=== PATIENT | male | born 1950 | race Caucasian/White ===

== ENCOUNTER 2017-03-12 11:38 | Observation (INO) | payer MEDICARE ==
[2017-03-12 11:57] VITALS: TEMP 97.8
--- NOTE | 2017-03-12 12:12 | ED PDOC ---
Arrival/HPI - General Chief Complaint: Alcohol Ingestion Time Seen by Provider: 03/12/17 11:39 Historian: Patient - History of Present Illness Narrative History of Present Illness (Text): 03/12/17 11:52 Sal Liu is a 67 year old male who presents to the emergency department complaining of ETOH abuse today. According to ER nurse, patient was drinking with friends when he could not stand up by himself. Patient endorses that he drank vodka today. Patient denies any fall, trauma, or any other complaints at this time. Time/Duration: 4-6 hours Symptom Onset: Gradual Symptom Course: Unchanged Severity Level: Mild Activities at Onset: Light Context: Home Past Medical History - Provider Review Nursing Documentation Reviewed: Yes - Psychiatric Hx Substance Use: No (denies) Family/Social History - Physician Review Nursing Documentation Reviewed: Yes Family/Social History: No Known Family HX Smoking Status: Unknown If Ever Smoked Hx Alcohol Use: Yes Frequency of alcohol use: Daily Hx Substance Use: No (denies) Allergies/Home Meds Allergies/Adverse Reactions: Allergies No Known Allergies Allergy (Verified 03/12/17 11:47) Home Medications: Home Meds Medication Instructions Recorded Confirmed No Known Home Med 03/12/17 03/12/17 Review of Systems - Physician Review All systems were reviewed & negative as marked: Yes - Review of Systems Constitutional: Other (Intoxicated) Eyes: absent: Vision Changes ENT: absent: Hearing Changes Respiratory: absent: SOB Cardiovascular: absent: Chest Pain Gastrointestinal: absent: Abdominal Pain, Anorexia Genitourinary Male: absent: Dysuria Musculoskeletal: absent: Arthralgias Skin: absent: Rash Neurological: absent: Headache Endocrine: absent: Diaphoresis Hemo/Lymphatic: absent: Adenopathy Psychiatric: absent: Depression Physical Exam Vital Signs Reviewed: Yes Vital Signs Temp Pulse Resp BP Pulse Ox 03/12/17 16:50 85 16 146/77 100 03/12/17 11:56 97.8 F 79 15 136/76 98 Temperature: Afebrile Blood Pressure: Normal Pulse: Regular Respiratory Rate: Normal Appearance: Positive for: Other (Intoxicated) Pain Distress: None Finger Stick Blood Glucose: 89 - Systems Exam Head: Present: Atraumatic, Normocephalic Pupils: Present: PERRL Extroacular Muscles: Present: EOMI Conjunctiva: Present: Normal Mouth: Present: Moist Mucous Membranes Neck: Present: Normal Range of Motion Respiratory/Chest: Present: Clear to Auscultation, Good Air Exchange. No: Respiratory Distress, Accessory Muscle Use Cardiovascular: Present: Regular Rate and Rhythm, Normal S1, S2. No: Murmurs Abdomen: Present: Normal Bowel Sounds. No: Tenderness, Distention, Peritoneal Signs Back: Present: Normal Inspection Upper Extremity: Present: Normal Inspection. No: Cyanosis, Edema Lower Extremity: Present: Normal Inspection. No: Edema Neurological: Present: GCS=15, CN II-XII Intact, Speech Normal Skin: Present: Warm, Dry, Normal Color. No: Rashes Psychiatric: Present: Alert, Oriented x 3, Normal Insight, Normal Concentration Medical Decision Making - Lab Interpretations Lab Results: Lab Results 03/12/17 11:57: POC Glucose (mg/dL) 87 I have reviewed the lab results: Yes ED OBSERVATION Date of observation admission: 03/12/17 Time of observation admission: 11:52 - Observation admission statement Patient is being placed in observation because:: 03/12/17 11:52 Impression: 67 year old male brought in by EMS complaining of alcoholic intoxication today. - Goals of Observation Goals of observation are:: Plan: -- EKG -- Reassess and disposition - Progress Note Progress Note: EKG: Ordered, reviewed, and independently interpreted the EKG. Rate : 80 BPM Rhythm : NSR Interpretation : No ST-segment elevations or depressions, no T-wave inversions, normal intervals. Comparison : No previous EKG for comparison. 03/12/17 12:38 Patient reassessed and is in no acute distress 03/12/17 14:59 On reevaluation, patient is sleeping and is in no acute distress 03/12/17 16:18 pt awake, unsteady gait.. will continue to observe 03/12/17 19:56 The patient feels better and is in no acute distress. I have discussed the results and plan with the patient, who expresses understanding. Patient given the opportunity to ask question, all questions were answered and there is agreement with the plan to discharge the patient. Patient is stable for discharge. Patient was instructed to follow up with physician/clinic in 1-2 days or return if symptoms persist/worsen or new concerning symptoms arise. - Scribe Statement The provider has reviewed the documentation as recorded by the Jose Thomas Provider Scribe Attestation: All medical record entries made by the Scribe were at my direction and personally dictated by me. I have reviewed the chart and agree that the record accurately reflects my personal performance of the history, physical exam, medical decision making, and the department course for this patient. I have also personally directed, reviewed, and agree with the discharge instructions and disposition. Disposition/Present on Arrival - Present on Arrival Any Indicators Present on Arrival: No History of DVT/PE: No History of Uncontrolled Diabetes: No Urinary Catheter: No History of Decub. Ulcer: No History Surgical Site Infection Following: None - Disposition Have Diagnosis and Disposition been Completed?: Yes Diagnosis: Alcohol abuse Disposition: HOME/ ROUTINE Disposition Time: 16:33 Patient Problems: Current Active Problems Problem Status Onset Alcohol abuse Acute Condition: STABLE
[2017-03-13 03:01] VITALS: BP 135/72; PULSE 75; RESP 18; O2SAT 97
--- NOTE | 2017-03-13 10:28 | CARD ---
APPROVED REPORT EKG Measurement Heart [id number] 164P28 [id number] <Conclusion> Normal sinus rhythm Normal ECG
== END 2017-03-12 16:12 | disposition home or self-care (01) ==
LOC: ED 11:38 → EROBSV 12:04
PROVIDERS: ADMIT Student in an Organized Health Care Education/Training Program; ATTEND Student in an Organized Health Care Education/Training Program
DX: F10.10 Alcohol abuse, uncomplicated (principal)
CPT/HCPCS: 82948; 93005; 99283; G0378

== ENCOUNTER 2018-12-24 21:48 | Observation (INO) | payer MEDICARE, OTHER ==
--- NOTE | 2018-12-24 22:18 | ED PDOC ---
Arrival/HPI - General Chief Complaint: Medical Clearance Time Seen by Provider: 12/24/18 21:49 Historian: Patient - History of Present Illness Narrative History of Present Illness (Text): 12/24/18 22:15 Sal Liu is a 68 year old male former smoker, whose past medical history includes hypertension, who presents to the ED complaining of chest pain. Patient states he began experiencing exertional left-sided chest pain while walking today with associated dizziness. Patient denies any fever, chills, shortness of breath, nausea, vomiting, diarrhea, urinary symptoms, back pain, neck pain, headache, or any other complaints. Time/Duration: Other (tonight) Symptom Onset: Gradual Symptom Course: Unchanged Activities at Onset: Light Context: Street Past Medical History - Provider Review Nursing Documentation Reviewed: Yes - Infectious Disease Hx of Infectious Diseases: None - Tetanus Immunization Tetanus Immunization: Up to Date (per patient) - Cardiac Hx Hypertension: Yes - Pulmonary Hx Asthma: Yes - Neurological Hx Neurological Disorder: No - HEENT Hx HEENT Disorder: No - Renal Hx Renal Disorder: No - Endocrine/Metabolic Hx Endocrine Disorders: No - Hematological/Oncological Hx Blood Disorders: No - Integumentary Hx Dermatological Disorder: No - Musculoskeletal/Rheumatological Hx Falls: No - Gastrointestinal Hx Pancreatitis: Yes (alcoholic) - Genitourinary/Gynecological Hx Genitourinary Disorders: No - Psychiatric Hx Psychophysiologic Disorder: No Hx Substance Use: No - Anesthesia Hx Anesthesia: No Family/Social History - Physician Review Nursing Documentation Reviewed: Yes Family/Social History: Unknown Family HX Smoking Status: Former Smoker Hx Alcohol Use: Yes Hx Substance Use: No Substance used: Marijuana (last used yesterday) Allergies/Home Meds Allergies/Adverse Reactions: Allergies pollen extracts Allergy (Verified 12/15/18 21:27) ITCHING Review of Systems - Physician Review All systems were reviewed & negative as marked: Yes - Review of Systems Constitutional: Normal. absent: Fevers Eyes: Normal ENT: Normal Respiratory: Normal. absent: SOB, Cough Cardiovascular: Chest Pain Gastrointestinal: Normal. absent: Abdominal Pain, Diarrhea, Nausea, Vomiting Genitourinary Male: Normal. absent: Dysuria, Frequency, Hematuria, Urinary Output Changes Musculoskeletal: Normal. absent: Back Pain, Neck Pain Skin: Normal Neurological: Dizziness. absent: Headache Endocrine: Normal Hemo/Lymphatic: Normal Psychiatric: Normal Physical Exam Vital Signs Reviewed: Yes Temperature: Afebrile Blood Pressure: Normal Pulse: Regular Respiratory Rate: Normal Appearance: Positive for: Well-Appearing, Non-Toxic, Comfortable Pain Distress: None Mental Status: Positive for: Alert and Oriented X 3 - Systems Exam Head: Present: Atraumatic, Normocephalic Pupils: Present: PERRL Extroacular Muscles: Present: EOMI Conjunctiva: Present: Normal Mouth: Present: Moist Mucous Membranes Neck: Present: Normal Range of Motion Respiratory/Chest: Present: Clear to Auscultation, Good Air Exchange. No: Respiratory Distress, Accessory Muscle Use Cardiovascular: Present: Regular Rate and Rhythm, Normal S1, S2. No: Murmurs Abdomen: No: Tenderness, Distention, Peritoneal Signs Back: Present: Normal Inspection Upper Extremity: Present: Normal Inspection. No: Cyanosis, Edema Lower Extremity: Present: Normal Inspection. No: Edema Neurological: Present: GCS=15, CN II-XII Intact, Speech Normal Skin: Present: Warm, Dry, Normal Color. No: Rashes Psychiatric: Present: Alert, Oriented x 3, Normal Insight, Normal Concentration Medical Decision Making ED Course and Treatment: 12/24/18 22:16 Impression: 68 year old male complaining of exertional left-sided chest pain and dizziness. Plan: -- EKG -- Chest X-ray -- Labs, cardiac enzymes -- Reassess and disposition Prior Visits: Notes and results from previous visits were reviewed. Progress Notes: Reviewed EKG, NSR at 76 bpm. Occasional PVC. Non-specific ST/T wave changes. 12/24/18 23:56 Chest X-ray reviewed, shows no acute processes. 12/25/18 01:[address] Christine, who is aware and agrees with plan. Accepts pt in to her service. Pt will go to Telemetry observation for chest pain. - Lab Interpretations I have reviewed the lab results: Yes - RAD Interpretation School Bus Aide: ED Physician - EKG Interpretation Interpreted by ED Physician: Yes Type: 12 lead EKG - Scribe Statement The provider has reviewed the documentation as recorded by the Scribe Edyta Chino Provider Scribe Attestation: All medical record entries made by the Scribe were at my direction and pe rsonally dictated by me. I have reviewed the chart and agree that the record accurately reflects my personal performance of the history, physical exam, medical decision making, and the department course for this patient. I have also personally directed, reviewed, and agree with the discharge instructions and disposition. Disposition/Present on Arrival - Present on Arrival Any Indicators Present on Arrival: No History of DVT/PE: No History of Uncontrolled Diabetes: No Urinary Catheter: No History of Decub. Ulcer: No History Surgical Site Infection Following: None - Disposition Have Diagnosis and Disposition been Completed?: Yes Diagnosis: Chest pain Disposition: HOSPITALIZED Disposition Time: 01:13 Patient Problems: Current Active Problems Problem Status Onset Chest pain Acute Condition: STABLE
[2018-12-24 22:38] LABS: HEMOGLOBIN 12.5 g/dL (14.0-18.0); MEAN CELL VOLUME 92.7 fl (80.0-105.0); MEAN CORPUSCULAR HEMOGLOBIN 30.5 pg (25.0-35.0); MEAN CORPUSCULAR HGB CONC 32.9 g/dl (31.0-37.0); MEAN PLATELET VOLUME 10.5 fl (7.0-11.0); RBC 4.1 10^6/uL (3.5-6.1); RED CELL DISTRIBUTION WIDTH 20.2 % (11.5-14.5); WHITE BLOOD COUNT 5.1 10^3/uL (4.5-11.0)
[2018-12-24 22:47] LABS: INR 1.41; PARTIAL THROMBOPLASTIN TIME 30.8 Seconds (26.9-38.3); PROTHROMBIN TIME 15.6 SECONDS (9.4-12.5)
[2018-12-24 22:56] LABS: CALCIUM 8.2 mg/dL (8.4-10.5)
[2018-12-24 22:57] LABS: ALB/GLOB RATIO 0.6 (1.1-1.8); ALBUMIN 3.3 g/dL (3.0-4.8)
[2018-12-24 23:15] LABS: CK MB% 1.5 % (2.5-3.0); CK-MB 6.5 ng/mL (0.0-3.6)
[2018-12-24 23:16] LABS: TROPONIN I 0.02 ng/mL
[2018-12-25 03:12] VITALS: BMI 24.3
--- NOTE | 2018-12-25 10:06 | RAD ---
Date of service: 12/24/2018 HISTORY: chest pain COMPARISON: No prior. TECHNIQUE: 1 view obtained. FINDINGS: LUNGS: No active pulmonary disease. PLEURA: No significant pleural effusion identified, no pneumothorax apparent. CARDIOVASCULAR: No aortic atherosclerotic calcification present. Normal cardiac size. No pulmonary vascular congestion. OSSEOUS STRUCTURES: No significant abnormalities. VISUALIZED UPPER ABDOMEN: Normal. OTHER FINDINGS: None. IMPRESSION: No active disease.
[2018-12-25] MEDS: Cefpodoxime (Vantin) 200 mg Tab PO SCH ×2 (12:05→22:01)
[2018-12-25] MEDS: Magnesium Oxide 400 mg Tab UD PO SCH (12:06)
[2018-12-25] MEDS: Multivitamin With Minerals Tab PO SCH (12:06)
--- NOTE | 2018-12-25 13:23 | CARD ---
APPROVED REPORT Date of service: 12/24/2018 EKG Measurement Heart [id number] [place] 160P34 [id number] <Conclusion> Sinus rhythm with occasional premature ventricularl complexes Otherwise normal ECG
--- NOTE | 2018-12-25 20:52 | HP ---
DATE OF EXAM: 12/25/2018 HISTORY OF PRESENT ILLNESS: The patient is 68-year-old black male, seen and examined. He states yesterday he was talking to somebody, having some joke. He was laughing. After sometime, he started to have left-sided chest pain, stabbing in nature with no significant radiation or diaphoresis. No history of fever or chills. No cough or congestion. No weakness. No dizziness. No fever. No cough. No hemoptysis. No hematemesis. He denies any abdominal pain. PAST MEDICAL HISTORY: He has past medical history significant for: 1. Cirrhosis liver. 2. History of alcohol abuse. 3. History of chronic kidney disease. 4. History of cholelithiasis. 5. Recently he states he stepped on a nail, and he had excision and some procedure done on his foot. He does not know what it actually was. 6. History of multiple therapeutic paracentesis. 7. Peptic ulcer disease. SOCIAL HISTORY: He drinks liquor almost every day; although, he was told he has cirrhosis liver, and he says that he has a plan for stop drinking soon. History of drug abuse. He lives with his family. ALLERGY: HE IS NOT ALLERGIC TO ANY MEDICATION. MEDICATIONS: At home, he is on Lasix 20 mg daily, folic acid 1 mg daily, propranolol 10 mg twice a day, spironolactone 50 mg daily, Protonix 40 daily, and multivitamin and magnesium oxide. PHYSICAL EXAMINATION: GENERAL: He looks comfortable. No chest pain. No shortness of breath. He does complain of pain in his left breast area. He seems to be having gynecomastia, probably secondary to cirrhosis liver. VITAL SIGNS: He is afebrile, pulse 83, respirations 19, and blood pressure 125/72. LUNGS: Bilateral fair airflow. No rhonchi or crackle. HEART: S1 and S2 audible. ABDOMEN: Soft and nontender. No rebound. No guarding. NEUROLOGIC: The patient is awake and alert; able to communicate. LABORATORY DATA: WBCs 5.1, hemoglobin 12.5, hematocrit 38, and platelet 97. PT 15.6 and INR 1.15. Chemistry; sodium 140, potassium 5.0, chloride 109, CO2 of 20, BUN 26, creatinine 2.2, and blood sugar of 91. Total bili 1.4, AST 138, ALT 39, alk phos 257, LDH is 1231, and CPK 427. Two sets of troponin is negative. ASSESSMENT: 1. Chest pain, seems to be noncardiac. 2. History of cirrhosis liver. 3. Gynecomastia. 4. Chronic kidney disease. 5. History of excessive alcohol use. 6. Cholelithiasis. 7. Status post multiple paracentesis because of cirrhosis liver. PLAN: We will follow up his troponin. We will start him on his usual medication. Analgesic as needed. He has infection close to the base of second toe because of recent intervention. I will hold off Bactrim that he was given, and we will rather give him cephalosporin. We will follow up troponin; order for echocardiogram. Awaiting Cardiology input. We will monitor for next 24 hours and discharge plan if the patient remains stable in a.m. Shantell Christine MD
--- NOTE | 2018-12-25 23:13 | CON ---
DATE: 12/25/2018 HISTORY OF PRESENT ILLNESS: The patient is a 68-year-old male who presents with focal atypical chest pain which is throbbing. The patient's past medical history includes ascites secondary to cirrhosis secondary to heavy alcohol intake. The patient continues to drink at home. The patient has no previous cardiac history. He was seen at [facility] recently where he had a paracentesis He suffers from hypertension and likely COPD from his years of smoking. REVIEW OF SYSTEMS: Free of cardiac symptomatology. PHYSICAL EXAMINATION: VITAL SIGNS: Blood pressure is 125/72. The heart rate is in the 80s. NECK: Negative JVD. LUNGS: Without rales. HEART: S1, S2. EXTREMITIES: Without edema. LABORATORY DATA: Includes an EKG which is within normal limits. Troponin so far negative. BUN and creatinine 26 and 2.2. The liver function tests are elevated. The hemoglobin is 12.5. IMPRESSION 1. Atypical chest pain. 2. No evidence for acute coronary syndrome. 3. Cirrhosis. 4. History of ascites 5. Hypertension. 6. Likely chronic obstructive pulmonary disease. 7. Alcohol addiction. PLAN: Given these findings, the patient is agreeable for AA program. We will rule out a myocardial infarction. If negative, the patient can be discharged in the morning. We will arrange for an outpatient stress test. Santiago Nelson MD
[2018-12-26 07:03] VITALS: O2SAT 95
[2018-12-26 07:03] LABS: ALB/GLOB RATIO 0.6 (1.1-1.8); ALBUMIN 2.7 g/dL (3.0-4.8); CALCIUM 8.7 mg/dL (8.4-10.5)
[2018-12-26] MEDS: Multivitamin With Minerals Tab PO SCH (09:29)
[2018-12-26] MEDS: Magnesium Oxide 400 mg Tab UD PO SCH (09:29)
[2018-12-26] MEDS: Cefpodoxime (Vantin) 200 mg Tab PO SCH (09:31)
--- NOTE | 2018-12-26 12:26 | PN ---
DATE: 12/26/2018 SUBJECTIVE: The patient was asymptomatic. PHYSICAL EXAMINATION: VITAL SIGNS: Blood pressure 153/83, heart rate is in the 60s. NECK: Negative JVD. LUNGS: Without rales. HEART: S1, S2. EXTREMITIES: Without edema. LABORATORY DATA: Troponins are negative x3. LFTs remain mildly elevated. IMPRESSION: 1. Alcoholism. 2. Probable alcoholic liver disease. 3. Atypical chest pain which is now resolved. 4. No evidence for acute coronary syndrome. PLAN: Given these findings, I have discussed with the patient about his need to stop his alcohol issues. He is agreeable for Alcoholics Anonymous. We will schedule an outpatient cardiac testing with the patient for his atypical chest pain. Santiago Nelson MD
[2018-12-26 14:08] VITALS: BP 145/87; PULSE 67; RESP 18; TEMP 98
--- NOTE | 2018-12-26 19:15 | CARD ---
APPROVED REPORT Date of service: 12/26/2018 EXAM: Two-dimensional and M-mode echocardiogram with Doppler and color Doppler. INDICATION Dizziness and Vertigo 2D DIMENSIONS Left Atrium (2D)3.9 (1.6-4.0cm)IVSd1.0 (0.7-1.1cm) LVDd4.3 (3.9-5.9cm)PWd1.0 (0.7-1.1cm) LVDs2.8 (2.5-4.0cm)FS (%) 34.9 % LVEF (%)64.3 (>50%) M-Mode DIMENSIONS Aortic Root3.90 (2.2-3.7cm)Aortic Cusp Exc.1.50 (1.5-2.0cm) Aortic Valve AoV Peak Vgsttgok892.0cm/[place] Peak GR.4mmHg Mitral Valve MV E Dtgvdkml43.9cm/sMV A Kqmgoudc73.9cm/sE/A ratio0.5 TDI Lateral E' Peak V9.85cm/sMedial E' Peak V6.04cm/sE/Lateral E'4.5 E/Medial E'7.3 Pulmonary Valve PV Peak Zhmlfsob24.1cm/sPV Peak Grad.2mmHg Tricuspid Valve TR Peak Bahajdnh876jr/sRAP [id number] Peak Gr.17mmHg [id number] LEFT VENTRICLE The left ventricle is normal size. There is normal left ventricular wall thickness. The left ventricular function is normal.EF-60-65% There is normal LV segmental wall motion. Transmitral Doppler flow pattern is Grade III-reversible restrictive diastolic dysfunction. No left ventricle thrombus noted on this study. There is no ventricular septal defect visualized. There is no left ventricular aneurysm. There is no mass noted in the left ventricle. RIGHT VENTRICLE The right ventricle is normal size. There is normal right ventricular wall thickness. The right ventricular systolic function is normal. ATRIA The left atrium size is normal. The right atrium size is normal. The atrial septum is aneurysmal. AORTIC VALVE The aortic valve is thickened but opens well. The aortic valve is mildly sclerotic. There is trace aortic regurgitation. There is no aortic valvular stenosis. There is no aortic valvular vegetation. MITRAL VALVE The mitral valve is thickened but opens well. Mitral regurgitation is trace. There is no mitral valve stenosis. There is no evidence of mitral valve prolapse. TRICUSPID VALVE The tricuspid valve leaflets are thickened , but open well. There is trace tricuspid regurgitation.RVSP-27 mmof Hg. There is no tricuspid valve stenosis. There is no tricuspid valve prolapse or vegetation. PULMONIC VALVE The pulmonary valve is normal in structure. There is no pulmonic valvular regurgitation. There is no pulmonic valvular stenosis. GREAT VESSELS The aortic root is normal in size. The ascending aorta is normal in size. The pulmonary artery is normal. The IVC is normal in size and collapses >50% with inspiration. PERICARDIAL EFFUSION There is no pleural effusion. There is no pericardial effusion. <Conclusion> Normal chamber Sizes. EF-60-65% Mitral regurgitation is trace. There is trace tricuspid regurgitation.RVSP-27 mmof Hg. The atrial septum is aneurysmal. The IVC is normal in size and collapses >50% with inspiration. There is no pericardial effusion. No Vegetation or thrombus noted.
--- NOTE | 2018-12-27 02:47 | DS ---
HISTORY OF PRESENT ILLNESS: The patient is a 68-year-old who came in with chest pain. There was no associated . No nausea. No vomiting. No diarrhea. The patient was observed overnight, doing well, and no chest pain noted. PHYSICAL EXAMINATION: VITAL SIGNS: The patient is afebrile, pulse 70, respirations 20, and blood pressure 153/83. LUNGS: Bilateral fair airflow. No rhonchi or crackle. HEART: S1 and S2 audible. ABDOMEN: Soft and nontender. No rebound. No guarding. NEUROLOGIC: The patient is awake, alert, and able to communicate. EXTREMITIES: Bilateral legs, no edema. SKIN: The patient seem to be jaundiced. LABORATORY DATA: Chemistry; sodium 137, potassium 5, chloride 105, CO2 of 25, BUN 21, creatinine 1.7, blood sugar of 94, and total bili 1.4. AST 146, ALT 53, and alk phos 244. ASSESSMENT: 1. Chest pain, seems to be noncardiac. Echocardiogram is pending. 2. History of alcohol abuse. 3. History of cirrhosis liver. 4. Status post multiple paracentesis. The patient does admit that he still drinks, he is advised to be referred to Alcoholics Anonymous meeting. PLAN: The patient is being discharged home today. He will resume his medication including Aldactone, aspirin, folic acid, propranolol, magnesium oxide, multivitamin, he is on Bactrim at home for his foot injury that he is advised to finish and follow up with his PMD. Shantell Christine MD
== END 2018-12-26 15:45 | disposition home or self-care (01) ==
LOC: ED 21:48 → ERH 12-25 01:13 → 2RNO 12-25 01:53
PROVIDERS: ADMIT Internal Medicine; ATTEND Internal Medicine
DX: R07.89 Other chest pain (principal); F10.20 Alcohol dependence, uncomplicated; I12.9 Hypertensive chronic kidney disease with stage 1 through stage 4 chronic kidney disease, or unspecified chronic kidney disease; N18.9 Chronic kidney disease, unspecified; K70.9 Alcoholic liver disease, unspecified; J44.9 Chronic obstructive pulmonary disease, unspecified; K74.60 Unspecified cirrhosis of liver; K80.20 Calculus of gallbladder without cholecystitis without obstruction; N62 Hypertrophy of breast; Z87.11 Personal history of peptic ulcer disease; Z87.891 Personal history of nicotine dependence
CPT/HCPCS: 36415; 71045; 80053; 82550; 82553; 83615; 84484; 85027; 85610; 85730; 93005; 93306; 96374; 99282; G0378; J0694; J1940

== ENCOUNTER 2018-12-27 01:59 | Inpatient (IN) | payer MEDICARE, OTHER ==
--- NOTE | 2018-12-27 02:14 | ED PDOC ---
Arrival/HPI <Jayesh Agosto - Last Filed: 12/27/18 02:48> - General Historian: Patient - History of Present Illness Narrative History of Present Illness (Text): 12/27/18 02:32 CC: non-specific abdominal pain HPI: 68 yo male w/ PMH of alcoholic liver cirrhosis, HTN, and pancreatitis comes to ED for evaluation of abdominal pain. Patient states that he had 1 shot of Fireball whiskey today. Patient also admits he [place] [facility] [place] because of the extended wait time. Patient states the pain started today in the abdomen, non-radiating, not relived with bowel movement today. Patient states he was recently discharged from the hospital for similar complaints but has not followed up with rehab for his alcohol problem. Denies fevers, chills, chest pain, sob, n/v, constipation or diarrhea, and dysuria. 12/27/18 02:35 Time/Duration: 24 hours Symptom Onset: Sudden Symptom Course: Unchanged Quality: Aching Severity Level: 7 Activities at Onset: Rest Context: Sitting <Ja Lynn - Last Filed: 12/27/18 04:02> - General Chief Complaint: Pain, Chronic Time Seen by Provider: 12/27/18 02:10 Past Medical History - Provider Review Nursing Documentation Reviewed: Yes - Infectious Disease Hx of Infectious Diseases: None - Tetanus Immunization Tetanus Immunization: Up to Date (per patient) - Cardiac Hx Hypertension: Yes - Pulmonary Hx Asthma: Yes - Neurological Hx Neurological Disorder: No - HEENT Hx HEENT Disorder: No - Renal Hx Renal Disorder: No - Endocrine/Metabolic Hx Endocrine Disorders: No - Hematological/Oncological Hx Blood Disorders: No - Integumentary Hx Dermatological Disorder: No - Musculoskeletal/Rheumatological Hx Falls: No - Gastrointestinal Hx Pancreatitis: Yes (alcoholic) - Genitourinary/Gynecological Hx Genitourinary Disorders: No - Psychiatric Hx Psychophysiologic Disorder: No Hx Substance Use: No - Anesthesia Hx Anesthesia: No <Ja Lynn - Last Filed: 12/27/18 04:02> Family/Social History - Physician Review Nursing Documentation Reviewed: Yes Family/Social History: No Known Family HX Smoking Status: Former Smoker Hx Alcohol Use: Yes Hx Substance Use: No Substance used: Marijuana (last used yesterday) <Ja Lynn - Last Filed: 12/27/18 04:02> Allergies/Home Meds <Jayesh Agosto - Last Filed: 12/27/18 02:48> <Ja Lynn - Last Filed: 12/27/18 04:02> Allergies/Adverse Reactions: Allergies pollen extracts Allergy (Verified 12/27/18 02:02) ITCHING Review of Systems - Review of Systems Constitutional: Normal. absent: Fatigue, Weight Change, Fevers Eyes: Normal. absent: Vision Changes, Photophobia, Eye Pain ENT: Normal. absent: Hearing Changes, Tinnitus, TMJ Pain Respiratory: Normal. absent: SOB, Cough, Sputum, Wheezing Cardiovascular: Normal. absent: Chest Pain, Palpitations, Edema, Calf Pain Gastrointestinal: Abdominal Pain. absent: Stool Changes, Constipation, Diarrhea, Nausea, Vomiting, Appetite Changes Genitourinary Male: Normal. absent: Dysuria, Frequency, Hematuria Musculoskeletal: Normal. absent: Arthralgias, Back Pain, Neck Pain Skin: Normal. absent: Rash, Pruritis, Skin Lesions Neurological: Normal. absent: Headache, Dizziness, Focal Weakness Endocrine: Normal. absent: Diaphoresis, Polyuria, Polydipsia Psychiatric: Normal. absent: Anxiety, Depression <Ja Lynn - Last Filed: 12/27/18 04:02> Physical Exam Vital Signs Reviewed: Yes Temperature: Afebrile Blood Pressure: Normal Pulse: Regular Respiratory Rate: Normal Appearance: Positive for: Well-Appearing, Non-Toxic, Comfortable Pain Distress: None Mental Status: Positive for: Alert and Oriented X 3 - Systems Exam Head: Present: Atraumatic, Normocephalic Pupils: Present: PERRL. No: Sluggish Extroacular Muscles: Present: EOMI. No: Gaze Palsy Conjunctiva: Present: Normal. No: Injected Mouth: Present: Dry Neck: Present: Normal Range of Motion. No: Meningeal Signs, JVD Respiratory/Chest: Present: Clear to Auscultation, Good Air Exchange. No: Respiratory Distress, Accessory Muscle Use, Wheezes, Decreased Breath Sounds Cardiovascular: Present: Regular Rate and Rhythm, Normal S1, S2. No: Murmurs, Tachycardic Abdomen: Present: Normal Bowel Sounds. No: Tenderness, Distention, Peritoneal Signs Upper Extremity: Present: Normal Inspection. No: Cyanosis, Edema Lower Extremity: Present: Normal Inspection. No: Edema Neurological: Present: GCS=15, CN II-XII Intact, Speech Normal Skin: Present: Warm, Dry, Normal Color. No: Rashes Psychiatric: Present: Alert, Oriented x 3, Normal Insight, Normal Concentration <Ja Lynn - Last Filed: 12/27/18 04:02> Medical Decision Making ED Course and Treatment: 12/27/18 02:36 Impression 68 yo male w/ PMH of alcoholic liver cirrhosis, HTN, and pancreatitis comes to ED for evaluation of abdominal pain. Plan -CBC -CMP -U/A -Tramadol -EKG -Troponin Prior Visits All prior documentation and lab work reviewed prior to this evaluation Progress notes will reassess pain pending blood work and urine study pending troponin and EKG 12/27/18 03:58 Lab work came with elevated Cr (1 unit increase from yesterday) After further review patient had positive urine cx for VRE, was discharged before culture returned, attempts were made to contact patient but unsuccessful U/A resulted and is suggestive of infection Troponin normal Spoke with Dr. Christine who accepted patient to her service, asked for ID consult with Dr. Lamb, will be admitted to med surgical floor Re-evaluation Time: 03:57 Reassessment Condition: Re-examined, Unchanged - Lab Interpretations Lab Results: 12/27/18 02:49 12/27/18 02:49 Lab Results 12/27/18 03:10: Urine Color Yellow, Urine Appearance Cloudy, Urine pH 6.0, Ur Specific [place] 1.020, Urine Protein Negative, Urine Glucose (UA) Negative, Urine Ketones Negative, Urine Blood Trace-intact H, Urine Nitrate Negative, Urine Bilirubin Negative, Urine Urobilinogen 0.2, Ur Leukocyte Esterase Moderate H, Urine RBC 0 - 2, Urine WBC 10 - 15 H, Ur Epithelial Cells 1 - 3, Urine Bacteria Many 12/27/18 02:49: Sodium 134, Potassium 4.6, Chloride 100, Carbon Dioxide 24, Anion Gap 15, BUN 26 H, Creatinine 2.7 H, Est GFR ( Amer) 28, Est GFR (Non-Af Amer) 23, Random Glucose 99, Calcium 9.4, Total Bilirubin 2.3 H, AST 140 H, ALT 51, Alkaline Phosphatase 236 H, Troponin I 0.02 D, Total Protein 8.4 H, Albumin 3.3, Globulin 5.1, Albumin/Globulin Ratio 0.7 L 12/27/18 02:49: WBC 7.0 D, RBC 4.26, Hgb 13.1 L, Hct 39.4 L, MCV 92.5, MCH 30. 8, MCHC 33.2, RDW 19.5 H, Plt Count 97 L, MPV 10.2, Neut % (Auto) 51.6, Lymph % (Auto) 36.5 H, [place] % (Auto) 8.7 H, Eos % (Auto) 2.3, Baso % (Auto) 0.9, Lymph # (Auto) 2.6, [place] # (Auto) 0.6, Eos # (Auto) 0.2, Baso # (Auto) 0.06, Absolute Neuts (auto) 3.60 I have reviewed the lab results: Yes Interpretation: Abnormal lab values - EKG Interpretation Interpreted by ED Physician: Yes (Sinus ryhtm w. PVCs; HR of 70) Type: 12 lead EKG <Ja Lynn - Last Filed: 12/27/18 04:02> - PA / ALIGNER / Resident Statement ERMIAS has reviewed & agrees with the documentation as recorded. ERMIAS has examined the patient and agrees with the treatment plan. <Jayesh Agosto - Last Filed: 12/27/18 02:48> Disposition/Present on Arrival <Jayesh Agosto - Last Filed: 12/27/18 02:48> - Present on Arrival Any Indicators Present on Arrival: No History of DVT/PE: No History of Uncontrolled Diabetes: No Urinary Catheter: No History of Decub. Ulcer: No History Surgical Site Infection Following: None - Disposition Have Diagnosis and Disposition been Completed?: Yes Disposition Time: 04:02 Patient Plan: Admission <Ja Lynn - Last Filed: 12/27/18 04:02> - Disposition Diagnosis: ANDIE (acute kidney injury), UTI (urinary tract infection) due to Enterococcus Disposition: HOSPITALIZED Condition: FAIR Forms: [facility] ([place])
[2018-12-27 03:08] LABS: BASO # 0.06 K/mm3 (0.0-2.0); BASO % 0.9 % (0.0-3.0); EOS # 0.2 (0.0-0.7); EOS % 2.3 % (1.5-5.0); HEMOGLOBIN 13.1 g/dL (14.0-18.0); LYMPH # 2.6 (1.2-3.4); LYMPH % 36.5 % (22.0-35.0); MEAN CELL VOLUME 92.5 fl (80.0-105.0); MEAN CORPUSCULAR HEMOGLOBIN 30.8 pg (25.0-35.0); MEAN CORPUSCULAR HGB CONC 33.2 g/dl (31.0-37.0); MEAN PLATELET VOLUME 10.2 fl (7.0-11.0); MONO # 0.6 (0.1-0.6); MONO % 8.7 % (1.0-6.0); RBC 4.26 10^6/uL (3.5-6.1); RED CELL DISTRIBUTION WIDTH 19.5 % (11.5-14.5)
[2018-12-27 03:22] LABS: URINE BILIRUBIN NEGATIVE (NEGATIVE); URINE BLOOD TRACE-INTACT (NEGATIVE); URINE GLUCOSE (UA) NEGATIVE (NEGATIVE); URINE LEUKOCYTE ESTERASE MODERATE Leu/uL (NEGATIVE); URINE PROTEIN NEGATIVE mg/dL (<30 mg/dL); URINE UROBILINOGEN 0.2 E.U./dL (<1 E.U./dL)
[2018-12-27 03:25] LABS: URINE COLOR YELLOW (YELLOW)
[2018-12-27 03:26] LABS: TROPONIN I 0.02 ng/mL
[2018-12-27 03:26] LABS: URINE APPEARANCE CLOUDY (CLEAR)
[2018-12-27 03:31] LABS: ALB/GLOB RATIO 0.7 (1.1-1.8); ALBUMIN 3.3 g/dL (3.0-4.8); CALCIUM 9.4 mg/dL (8.4-10.5)
[2018-12-27 03:40] LABS: URINE RBC 0 - 2 /hpf (0-2)
[2018-12-27 03:41] LABS: URINE BACTERIA MANY /hpf
[2018-12-27] MEDS ORDERED: Linezolid 600 mg in D5W 300 ml 600 MG/300 ML BAG IVPB ONE (03:48)
[2018-12-27 07:06] VITALS: BMI 18.8
--- NOTE | 2018-12-27 08:38 | CP.PCM.CON ---
<Constantin Carter - Last Filed: 12/27/18 10:48> History of Present Illness - History of Present Illness History of Present Illness: Infectious disease consult note: 68-year-old male with past medical history of alcoholic liver cirrhosis, pancreatitis, hypertension, CKD presents to the hospital with abdominal pain. Patient states that his abdominal pain started yesterday following a shot of w hiskey. He states the pain is generalized and 7 out of 10 in severity. Denies any nausea or vomiting. Patient denies any urinary discomfort however does admit to some urgency. Patient was just recently present and discharged from the hospital for abdominal pain ruling out SBP. Patient had a urine culture that was positive for VRE. Infectious diseases consulted for urine cultures positive for VRE. 12 point ROS performed negative other than stated above PMH: As above PSH: Admits to some liver surgery however does not recall the name Allergies: Denies SH: Admits to drinking liquor every day, denies any drug or alcohol use FH: Denies Review of Systems - Review of Systems All systems: reviewed and no additional remarkable complaints except Past Patient History - Infectious Disease Hx of Infectious Diseases: None - Tetanus Immunizations Tetanus Immunization: Up to Date (per patient) - Past Medical History & Family History Past Medical History?: Yes - Past Social History Smoking Status: Former Smoker - CARDIAC Hx Cardiac Disorders: Yes Hx Hypertension: Yes Other/Comment: chest pain - PULMONARY Hx Respiratory Disorders: Yes Hx Asthma: Yes Hx Pneumonia: Yes - NEUROLOGICAL Hx Neurological Disorder: No - HEENT Hx HEENT Problems: No - RENAL Hx Chronic Kidney Disease: No Other/Comment: ANDIE - ENDOCRINE/METABOLIC Hx Endocrine Disorders: No - HEMATOLOGICAL/ONCOLOGICAL Hx Blood Disorders: Yes Hx Cirrhosis: Yes - INTEGUMENTARY Hx Dermatological Problems: No - MUSCULOSKELETAL/RHEUMATOLOGICAL Hx Arthritis: Yes Hx Falls: Yes Hx Unsteady Gait: Yes - GASTROINTESTINAL Hx Gastrointestinal Disorders: Yes Hx Pancreatitis: Yes (alcoholic) Hx Ulcer: Yes - GENITOURINARY/GYNECOLOGICAL Hx Genitourinary Disorders: No - PSYCHIATRIC Hx Psychophysiologic Disorder: Yes Hx Depression: Yes - SURGICAL HISTORY Hx Surgeries: Yes Other/Comment: liver bx - ANESTHESIA Hx Anesthesia: No Meds Allergies/Adverse Reactions: Allergies Allergy/AdvReac Type Severity Reaction Status Date / Time pollen extracts Allergy ITCHING Verified 12/27/18 02:02 - Medications Medications: Current Medications Linezolid (Zyvox 600mg/300ml D5w) 600 mg in 300 mls @ 200 mls/hr IVPB Q12 [facility]ERY; Protocol Stop: 12/27/18 23:29 Cefepime HCl (Maxipime 1gm) 1 gm in 100 mls @ 100 mls/hr IVPB Q24H [facility]; Protocol Stop: 01/04/19 14:01 Metronidazole (Flagyl) 250 mg PO Q8H [facility]ERY; Protocol Stop: 01/04/19 07:01 Physical Exam - Constitutional Appears: No Acute Distress - Head Exam Head Exam: ATRAUMATIC, NORMOCEPHALIC - Eye Exam Eye Exam: EOMI, PERRL - ENT Exam ENT Exam: Mucous Membranes Moist - Respiratory Exam Respiratory Exam: Clear to Auscultation Bilateral. absent: Rales, Wheezes - Cardiovascular Exam Cardiovascular Exam: REGULAR RHYTHM, +S1, +S2 - GI/Abdominal Exam GI & Abdominal Exam: Distended, Normal Bowel Sounds, Soft, Tenderness (mild) - Extremities Exam Extremities exam: Negative for: calf tenderness, pedal edema - Neurological Exam Neurological exam: Alert, Oriented x3 - Psychiatric Exam Psychiatric exam: Normal Mood - Skin Skin Exam: Dry, Warm Results - Vital Signs Recent Vital Signs: Last Vital Signs Temp 97.8 F 12/27/18 08:15 Pulse 69 12/27/18 08:15 Resp 20 12/27/18 08:15 BP 106/67 12/27/18 08:15 Pulse Ox 99 12/27/18 08:15 - Labs Result Diagrams: 12/27/18 02:49 12/27/18 02:49 Labs: Laboratory Results - last 24 hr 12/27/18 12/27/18 12/27/18 02:49 02:49 03:10 WBC 7.0 D RBC 4.26 Hgb 13.1 L Hct 39.4 L MCV 92.5 MCH 30.8 MCHC 33.2 RDW 19.5 H Plt Count 97 L MPV 10.2 Neut % (Auto) 51.6 Lymph % (Auto) 36.5 H [place] % (Auto) 8.7 H Eos % (Auto) 2.3 Baso % (Auto) 0.9 Lymph # (Auto) 2.6 [place] # (Auto) 0.6 Eos # (Auto) 0.2 Baso # (Auto) 0.06 Absolute Neuts (auto) 3.60 Sodium 134 Potassium 4.6 Chloride 100 Carbon Dioxide 24 Anion Gap 15 BUN 26 H Creatinine 2.7 H Est GFR ( Amer) 28 Est GFR (Non-Af Amer) 23 Random Glucose 99 Calcium 9.4 Total Bilirubin 2.3 H AST 140 H ALT 51 Alkaline Phosphatase 236 H Troponin I 0.02 D Total Protein 8.4 H Albumin 3.3 Globulin 5.1 Albumin/Globulin Ratio 0.7 L Urine Color Yellow Urine Appearance Cloudy Urine pH 6.0 Ur Specific [place] 1.020 Urine Protein Negative Urine Glucose (UA) Negative Urine Ketones Negative Urine Blood Trace-intact H Urine Nitrate Negative Urine Bilirubin Negative Urine Urobilinogen 0.2 Ur Leukocyte Esterase Moderate H Urine RBC 0 - 2 Urine WBC 10 - 15 H Ur Epithelial Cells 1 - 3 Urine Bacteria Many Assessment & Plan - Assessment and Plan (Free Text) Assessment: Abdominal pain rule out SBP Asymptomatic bacteriurea Acute on chronic kidney dx Alcoholic liver cirrhosis Hypertension History of pancreatitis Patient was given 1 dose of linezolid in the ED, we will d/c We will continue patient on Cefepime and Flagyl Follow-up septic work-up Continue to monitor for any changes. Case and plan to be reviewed and discussed with Dr. Lamb <Moshe Lamb - Last Filed: 12/27/18 18:08> Meds - Medications Medications: Current Medications Folic Acid (Folic Acid) 1 mg PO DAILY [facility] Last Admin: 12/27/18 11:09 Dose: 1 mg Furosemide (Lasix) 20 mg PO DAILY [facility] Last Admin: 12/27/18 11:09 Dose: 20 mg Cefepime HCl (Maxipime 1gm) 1 gm in 100 mls @ 100 mls/hr IVPB Q24H [facility]; Protocol Stop: 01/04/19 14:01 Last Admin: 12/27/18 15:11 Dose: 100 mls/hr Magnesium Oxide (Mag-Ox) 400 mg PO DAILY [facility] Last Admin: 12/27/18 11:07 Dose: 400 mg Metronidazole (Flagyl) 250 mg PO Q8H [facility]; Protocol Stop: 01/04/19 07:01 Last Admin: 12/27/18 15:12 Dose: 250 mg Propranolol HCl (Inderal) 10 mg PO BID [facility] Last Admin: 12/27/18 17:42 Dose: 10 mg Spironolactone (Aldactone) 50 mg PO DAILY [facility] Last Admin: 12/27/18 11:08 Dose: 50 mg Thiamine HCl (Vitamin B1 Tab) 100 mg PO DAILY [facility] Last Admin: 12/27/18 11:07 Dose: 100 mg Results - Vital Signs Recent Vital Signs: Last Vital Signs Temp 98.9 F 12/27/18 16:25 Pulse 82 12/27/18 17:42 Resp 20 12/27/18 16:25 BP 110/71 12/27/18 17:42 Pulse Ox 97 12/27/18 16:25 - Labs Result Diagrams: 12/27/18 02:49 12/27/18 02:49 Labs: Laboratory Results - last 24 hr 12/27/18 12/27/18 12/27/18 02:49 02:49 03:10 WBC 7.0 D RBC 4.26 Hgb 13.1 L Hct 39.4 L MCV 92.5 MCH 30.8 MCHC 33.2 RDW 19.5 H Plt Count 97 L MPV 10.2 Neut % (Auto) 51.6 Lymph % (Auto) 36.5 H [place] % (Auto) 8.7 H Eos % (Auto) 2.3 Baso % (Auto) 0.9 Lymph # (Auto) 2.6 [place] # (Auto) 0.6 Eos # (Auto) 0.2 Baso # (Auto) 0.06 Absolute Neuts (auto) 3.60 Sodium 134 Potassium 4.6 Chloride 100 Carbon Dioxide 24 Anion Gap 15 BUN 26 H Creatinine 2.7 H Est GFR ( Amer) 28 Est GFR (Non-Af Amer) 23 Random Glucose 99 Calcium 9.4 Total Bilirubin 2.3 H AST 140 H ALT 51 Alkaline Phosphatase 236 H Troponin I 0.02 D Total Protein 8.4 H Albumin 3.3 Globulin 5.1 Albumin/Globulin Ratio 0.7 L Lipase Urine Color Yellow Urine Appearance Cloudy Urine pH 6.0 Ur Specific [place] 1.020 Urine Protein Negative Urine Glucose (UA) Negative Urine Ketones Negative Urine Blood Trace-intact H Urine Nitrate Negative Urine Bilirubin Negative Urine Urobilinogen 0.2 Ur Leukocyte Esterase Moderate H Urine RBC 0 - 2 Urine WBC 10 - 15 H Ur Epithelial Cells 1 - 3 Urine Bacteria Many 12/27/18 09:00 WBC RBC Hgb Hct MCV MCH MCHC RDW Plt Count MPV Neut % (Auto) Lymph % (Auto) [place] % (Auto) Eos % (Auto) Baso % (Auto) Lymph # (Auto) [place] # (Auto) Eos # (Auto) Baso # (Auto) Absolute Neuts (auto) Sodium Potassium Chloride Carbon Dioxide Anion Gap BUN Creatinine Est GFR ( Amer) Est GFR (Non-Af Amer) Random Glucose Calcium Total Bilirubin AST ALT Alkaline Phosphatase Troponin I Total Protein Albumin Globulin Albumin/Globulin Ratio Lipase 300 Urine Color Urine Appearance Urine pH Ur Specific [place] Urine Protein Urine Glucose (UA) Urine Ketones Urine Blood Urine Nitrate Urine Bilirubin Urine Urobilinogen Ur Leukocyte Esterase Urine RBC Urine WBC Ur Epithelial Cells Urine Bacteria Attending/Attestation - Attestation I have personally seen and examined this patient.: Yes I have fully participated in the care of the patient.: Yes I have reviewed all pertinent clinical information: Yes
[2018-12-27] MEDS: Magnesium Oxide 400 mg Tab UD PO SCH (11:07)
--- NOTE | 2018-12-27 11:37 | CARD ---
APPROVED REPORT Date of service: 12/27/2018 EKG Measurement Heart [id number] <Conclusion> Sinus rhythm with occasional premature ventricular complexes Otherwise normal ECG
[2018-12-27] MEDS: Cefepime 1gm in NS 100ml 1 GM/100 ML BAG IVPB SCH (15:11)
--- NOTE | 2018-12-27 20:17 | HP ---
DATE OF EXAM: 12/27/2018 HISTORY OF PRESENT ILLNESS: The patient is 68 years old, he was just discharged yesterday after he was admitted for chest pain. He was there was no acute coronary ischemia. The patient does have a history of alcohol abuse. He does admit drinking 2 shots last night. He states he started with abdominal pain, suprapubic discomfort. On previous admission, he was found to have VRE urine infection, so he came back for suprapubic discomfort and evaluation of that. PAST MEDICAL HISTORY: Significant for: 1. Cirrhosis liver secondary to alcohol abuse. 2. History of hypertension. 3. Hyperlipidemia. 4. Right foot wound infection. He had multiple admissions for ascites and they were tapped multiple times; however, the patient still actively drinks. 5. History of chronic kidney disease. 6. Cholelithiasis. 7. Peptic ulcer disease. SOCIAL HISTORY: He drinks liquor almost everyday. He lives with his niece. He denies drug abuse. No history of smoking. ALLERGIES: NOT ALLERGIC TO ANY MEDICATIONS. MEDICATIONS AT HOME: He is on Lasix 20 mg daily, folic acid 1 mg daily, magnesium oxide 400 mg daily, Protonix 40 mg daily, spironolactone 50 mg daily, and propranolol 10 mg twice a day. PHYSICAL EXAMINATION: GENERAL: He is awake and alert, able to communicate, complains of some palpable discomfort. VITAL SIGNS: He is afebrile. Pulse 69, respirations 20 and blood pressure 106/69. LUNGS: Bilateral fair airflow. No rhonchi or crackles. HEART: S1 and S2, audible. ABDOMEN: Soft. Suprapubic discomfort. NEUROLOGIC: He is awake and alert, able to communicate. LABORATORY DATA: WBC 7.0, hemoglobin 13, hematocrit 39 and platelets 97. Chemistry; sodium 134, potassium 4.6, chloride 100, CO2 of 24, BUN 26, creatinine 2.7, blood sugar of 99, alk phos 237, AST 140, total bili 2.3. Urinalysis shows moderate leukocyte, 10-15 WBC's. ASSESSMENT: 1. Suprapubic discomfort, probably cystitis and urinary tract infection, growing vancomycin-resistant enterococci. 2. Alcoholic hepatitis. 3. Alcohol abuse. 4. Cirrhosis liver. 5. Cirrhotic ascites. 6. History of hypertension. 7. Electrolyte imbalance. 8. History of pancreatitis in the past. PLAN: Currently, the patient is on cefepime and Flagyl to be covered for spontaneous bacterial peritonitis and VRE UTI, we will continue that. We will monitor his electrolytes, CBC and CMP intermittently. Shantell Christine MD
[2018-12-27] MEDS ORDERED: Linezolid 600 mg in D5W 300 ml 600 MG/300 ML BAG IVPB SCH (22:00)
[2018-12-28] MEDS: Magnesium Oxide 400 mg Tab UD PO SCH (10:21)
--- NOTE | 2018-12-28 12:49 | CP.PCM.PN ---
<Constantin Carter - Last Filed: 12/28/18 15:09> Subjective - Date & Time of Evaluation Date of Evaluation: 12/28/18 Time of Evaluation: 07:50 - Subjective Subjective: ID progress note: Pt seen and examined at bedside. No acute events overnight. Pt still c/o some abd pain. No other complaints. NO fevers. Objective - Vital Signs/Intake and Output Vital Signs (last 24 hours): Temp Pulse Resp BP Pulse Ox 98.0 F 79 20 110/69 96 12/28/18 06:00 12/28/18 10:21 12/28/18 06:00 12/28/18 10:22 12/28/18 06:00 - Medications Medications: Current Medications Chlordiazepoxide (Librium) 25 mg PO Q8 PRN; Protocol PRN Reason: Agitation Folic Acid (Folic Acid) 1 mg PO DAILY [facility] Last Admin: 12/28/18 10:21 Dose: 1 mg Furosemide (Lasix) 20 mg PO DAILY [facility] Last Admin: 12/28/18 10:22 Dose: 20 mg Cefepime HCl (Maxipime 1gm) 1 gm in 100 mls @ 100 mls/hr IVPB Q24H [facility]; Protocol Stop: 01/04/19 14:01 Last Admin: 12/27/18 15:11 Dose: 100 mls/hr Magnesium Oxide (Mag-Ox) 400 mg PO DAILY [facility] Last Admin: 12/28/18 10:21 Dose: 400 mg Metronidazole (Flagyl) 250 mg PO Q8 [facility]; Protocol Stop: 01/04/19 06:01 Last Admin: 12/28/18 06:21 Dose: 250 mg Propranolol HCl (Inderal) 10 mg PO BID [facility] Last Admin: 12/28/18 10:21 Dose: 10 mg Spironolactone (Aldactone) 50 mg PO DAILY [facility] Last Admin: 12/28/18 10:21 Dose: 50 mg Thiamine HCl (Vitamin B1 Tab) 100 mg PO DAILY [facility] Last Admin: 12/28/18 10:21 Dose: 100 mg - Labs Labs: 12/27/18 02:49 12/27/18 02:49 - Constitutional Appears: No Acute Distress - Head Exam Head Exam: ATRAUMATIC, NORMOCEPHALIC - Eye Exam Eye Exam: EOMI - Respiratory Exam Respiratory Exam: Clear to Ausculation Bilateral. absent: Wheezes - Cardiovascular Exam Cardiovascular Exam: REGULAR RHYTHM, +S1, +S2 - GI/Abdominal Exam GI & Abdominal Exam: Soft, Tenderness - Extremities Exam Extremities Exam: absent: Calf Tenderness, Pedal Edema - Neurological Exam Neurological Exam: Alert, Awake - Skin Skin Exam: Dry, Warm Assessment and Plan - Assessment and Plan (Free Text) Assessment: Abdominal pain rule out SBP Asymptomatic bacteriurea Acute on chronic kidney dx Alcoholic liver cirrhosis Hypertension History of pancreatitis Linezolid x 1 we will d/c Asymptomatic bacteriurea We will continue patient on Cefepime and Flagyl day 2 Follow-up septic work-up, blood cx x 24 neg F/u paracenthesis ordered Continue to monitor for any changes. Case and plan to be reviewed and discussed with Dr. Lamb <Moshe Lamb - Last Filed: 12/28/18 21:51> Objective - Vital Signs/Intake and Output Vital Signs (last 24 hours): Temp Pulse Resp BP Pulse Ox 99 F 77 18 114/68 97 12/28/18 16:30 12/28/18 18:19 12/28/18 16:30 12/28/18 18:19 12/28/18 16:30 Intake and Output: 12/28/18 12/29/18 18:59 06:59 Intake Total 100 Balance 100 - Medications Medications: Current Medications Chlordiazepoxide (Librium) 25 mg PO Q8 PRN; Protocol PRN Reason: Agitation Folic Acid (Folic Acid) 1 mg PO DAILY [facility] Last Admin: 12/28/18 10:21 Dose: 1 mg Furosemide (Lasix) 20 mg PO DAILY [facility] Last Admin: 12/28/18 10:22 Dose: 20 mg Cefepime HCl (Maxipime 1gm) 1 gm in 100 mls @ 100 mls/hr IVPB Q24H [facility]; Protocol Stop: 01/04/19 14:01 Last Admin: 12/28/18 13:19 Dose: 100 mls/hr Magnesium Oxide (Mag-Ox) 400 mg PO DAILY [facility] Last Admin: 12/28/18 10:21 Dose: 400 mg Metronidazole (Flagyl) 250 mg PO Q8 [facility]; Protocol Stop: 01/04/19 06:01 Last Admin: 12/28/18 13:19 Dose: 250 mg Propranolol HCl (Inderal) 10 mg PO BID [facility] Last Admin: 12/28/18 18:19 Dose: 10 mg Spironolactone (Aldactone) 50 mg PO DAILY [facility] Last Admin: 12/28/18 10:21 Dose: 50 mg Thiamine HCl (Vitamin B1 Tab) 100 mg PO DAILY [facility] Last Admin: 12/28/18 10:21 Dose: 100 mg - Labs Labs: 12/27/18 02:49 12/27/18 02:49 Attending/Attestation - Attestation I have personally seen and examined this patient.: Yes I have fully participated in the care of the patient.: Yes I have reviewed all pertinent clinical information, including history, physical exam and plan: Yes
[2018-12-28] MEDS: Cefepime 1gm in NS 100ml 1 GM/100 ML BAG IVPB SCH (13:19)
--- NOTE | 2018-12-28 17:52 | US ---
PROCEDURE: Ultrasound guided paracentesis. HISTORY: Alcoholic cirrhosis with ascites. Abdominal pain. Evaluate for peritonitis. PHYSICIAN(S): Santiago Schuster MD. TECHNIQUE: The relative risks and indications for the procedure were explained to the patient and informed written consent obtained. Sonography of the abdomen was performed in a supine position. This revealed a very small amount of non loculated ascites in the right lower quadrant. There was not enough fluid for a therapeutic paracentesis. A 20 gauge needle was advanced in the right lower quadrant and 25 cc of clear gabino fluid aspirated. The appropriate labs were sent IMPRESSION: Ultrasound-guided paracentesis in the right lower quadrant. 25 cc of clear gabino fluid was aspirated. The appropriate labs were sent
[2018-12-28 18:00] LABS: BODY FLUID TYPE PERITONEAL/ASCITES
[2018-12-28 19:12] LABS: BF GROSS APPEARANCE CLOUDY (CLEAR); BODY FLUID TOTAL COUNT 100 (0-0)
--- NOTE | 2018-12-28 21:22 | PN ---
DATE: 12/28/2018 SUBJECTIVE: The patient is 68 years old, seen and examined. He states his suprapubic discomfort is better than before. Denies any nausea or vomiting. Eating and tolerating. PHYSICAL EXAMINATION VITAL SIGNS: The patient is afebrile. Pulse 64, respirations 18, blood pressure 106/70. LUNGS: Bilateral fair airflow. No rhonchi or crackle. HEART: S1 and S2 audible. ABDOMEN: Soft. Right suprapubic discomfort. NEUROLOGIC: He is awake and alert, able to communicate. LABORATORY DATA: WBC 7, hemoglobin 13, hematocrit 39, platelets 97. Chemistries; sodium 134, potassium 4.6, chloride 100, CO2 of 24, BUN 26, creatinine 2.7. Total bili 2.3, AST 140, alk phos is 236. Urine shows moderate leukocytes. Blood cultures are negative. ASSESSMENT AND PLAN: 1. Vancomycin-resistant enterococci urinary tract infection. I am no sure if this is colonization or is infection. 2. Cirrhosis of liver secondary to chronic alcohol use. 3. Cirrhotic ascites, questionable on small-volume parenteral. 4. Active alcohol abuse. PLAN: Currently, the patient is on metronidazole. He is on spironolactone, propranolol, Lasix. He is on Librium as needed. He is on magnesium oxide and cefepime. Request to Dr. Santiago Schuster for diagnostic paracentesis. Shantell Christine MD
--- NOTE | 2018-12-29 08:10 | CP.PCM.PN ---
<Constantin Carter - Last Filed: 12/29/18 13:56> Subjective - Date & Time of Evaluation Date of Evaluation: 12/29/18 Time of Evaluation: 10:00 - Subjective Subjective: Infectious dx progress note: Pt seen and examined at bedside. No acute events overnight. No abd pain. No other complaints at this time. No fevers 12 Point ROS performed and neg other than stated above Objective - Vital Signs/Intake and Output Vital Signs (last 24 hours): Temp Pulse Resp BP Pulse Ox 99 F 77 18 114/68 97 12/28/18 16:30 12/28/18 18:19 12/28/18 16:30 12/28/18 18:19 12/28/18 16:30 Intake and Output: 12/29/18 12/29/18 06:59 18:59 Intake Total 1520 Output Total 600 Balance 920 - Medications Medications: Current Medications Chlordiazepoxide (Librium) 25 mg PO Q8 PRN; Protocol PRN Reason: Agitation Folic Acid (Folic Acid) 1 mg PO DAILY [facility] Last Admin: 12/28/18 10:21 Dose: 1 mg Furosemide (Lasix) 20 mg PO DAILY [facility] Last Admin: 12/28/18 10:22 Dose: 20 mg Cefepime HCl (Maxipime 1gm) 1 gm in 100 mls @ 100 mls/hr IVPB Q24H [facility]; Protocol Stop: 01/04/19 14:01 Last Admin: 12/28/18 13:19 Dose: 100 mls/hr Magnesium Oxide (Mag-Ox) 400 mg PO DAILY [facility] Last Admin: 12/28/18 10:21 Dose: 400 mg Metronidazole (Flagyl) 250 mg PO Q8 [facility]; Protocol Stop: 01/04/19 06:01 Last Admin: 12/29/18 06:40 Dose: 250 mg Propranolol HCl (Inderal) 10 mg PO BID [facility] Last Admin: 12/28/18 18:19 Dose: 10 mg Spironolactone (Aldactone) 50 mg PO DAILY [facility] Last Admin: 12/28/18 10:21 Dose: 50 mg Thiamine HCl (Vitamin B1 Tab) 100 mg PO DAILY [facility] Last Admin: 12/28/18 10:21 Dose: 100 mg - Labs Labs: 12/27/18 02:49 12/27/18 02:49 - Constitutional Appears: No Acute Distress - Respiratory Exam Respiratory Exam: Clear to Ausculation Bilateral. absent: Rales, Wheezes - Cardiovascular Exam Cardiovascular Exam: REGULAR RHYTHM, +S1, +S2 - GI/Abdominal Exam GI & Abdominal Exam: Soft. absent: Distended, Tenderness - Extremities Exam Extremities Exam: absent: Calf Tenderness, Pedal Edema Assessment and Plan - Assessment and Plan (Free Text) Assessment: Abdominal pain rule out SBP s/p paracenthesis neg for SBP Asymptomatic bacteriurea Acute on chronic kidney dx Alcoholic liver cirrhosis Hypertension History of pancreatitis Upon d/c can go with Augmentin 875mg PO for 5 days. Linezolid x 1 we will d/c Asymptomatic bacteriurea D/c Cefepime and Flagyl completed 3 days Follow-up septic work-up, blood cx x 24 neg Continue to monitor for any changes. Case and plan to be reviewed and discussed with Dr. Lamb <Moshe Lamb - Last Filed: 12/29/18 22:06> Objective - Vital Signs/Intake and Output Vital Signs (last 24 hours): Temp Pulse Resp BP Pulse Ox 98.7 F 71 20 108/64 96 12/29/18 17:23 12/29/18 17:30 12/29/18 17:23 12/29/18 17:30 12/29/18 17:23 - Medications Medications: Current Medications Amoxicillin/Clavulanate Potassium (Augmentin 875 Mg-125 Mg Tab) 1 tab PO Q12 [facility]; Protocol Last Admin: 12/29/18 21:08 Dose: 1 tab Chlordiazepoxide (Librium) 25 mg PO Q8 PRN; Protocol PRN Reason: Agitation Folic Acid (Folic Acid) 1 mg PO DAILY [facility] Last Admin: 12/29/18 09:25 Dose: 1 mg Furosemide (Lasix) 20 mg PO DAILY [facility] Last Admin: 12/29/18 09:25 Dose: 20 mg Magnesium Oxide (Mag-Ox) 400 mg PO DAILY [facility] Last Admin: 12/29/18 09:25 Dose: 400 mg Propranolol HCl (Inderal) 10 mg PO BID [facility] Last Admin: 12/29/18 17:30 Dose: 10 mg Spironolactone (Aldactone) 50 mg PO DAILY [facility] Last Admin: 12/29/18 09:25 Dose: 50 mg Thiamine HCl (Vitamin B1 Tab) 100 mg PO DAILY [facility] Last Admin: 12/29/18 09:24 Dose: 100 mg - Labs Labs: 12/29/18 08:20 12/29/18 08:20 Attending/Attestation - Attestation I have personally seen and examined this patient.: Yes I have fully participated in the care of the patient.: Yes I have reviewed all pertinent clinical information, including history, physical exam and plan: Yes
[2018-12-29 08:30] LABS: BASO # 0.02 K/mm3 (0.0-2.0); BASO % 0.3 % (0.0-3.0); EOS # 0.2 (0.0-0.7); EOS % 2.5 % (1.5-5.0); HEMOGLOBIN 11.7 g/dL (14.0-18.0); LYMPH # 2.3 (1.2-3.4); LYMPH % 33.4 % (22.0-35.0); MEAN CELL VOLUME 94.3 fl (80.0-105.0); MEAN CORPUSCULAR HEMOGLOBIN 30.3 pg (25.0-35.0); MEAN CORPUSCULAR HGB CONC 32.1 g/dl (31.0-37.0); MEAN PLATELET VOLUME 10.5 fl (7.0-11.0); MONO # 0.5 (0.1-0.6); RBC 3.86 10^6/uL (3.5-6.1); RED CELL DISTRIBUTION WIDTH 19.1 % (11.5-14.5); WHITE BLOOD COUNT 6.7 10^3/uL (4.5-11.0)
[2018-12-29 08:32] VITALS: RESP 20
[2018-12-29 08:41] LABS: ALB/GLOB RATIO 0.6 (1.1-1.8); ALBUMIN 2.8 g/dL (3.0-4.8); CALCIUM 8.7 mg/dL (8.4-10.5)
[2018-12-29] MEDS: Magnesium Oxide 400 mg Tab UD PO SCH (09:25)
[2018-12-29] MEDS: Cefepime 1gm in NS 100ml 1 GM/100 ML BAG IVPB SCH (13:54)
[2018-12-29 17:24] VITALS: O2SAT 96
[2018-12-29] MEDS: Amoxicillin-Clav 875-125 mg Tab PO SCH (21:08)
--- NOTE | 2018-12-29 21:36 | PN ---
DATE: 12/29/2018 SUBJECTIVE: The patient is 68 years old. Seen and examined. He states since he has paracentesis and fluids taken out, he feels much better. Belly pain has significantly improved. Eating better. PHYSICAL EXAMINATION: VITAL SIGNS: He is afebrile, pulse 71, respirations 20, and blood pressure 108/64. LUNGS: Bilateral fair air flow. No rhonchi or crackles. HEART: S1 and S2 audible. ABDOMEN: Soft. Less distention. No suprapubic discomfort. NEUROLOGIC: He is awake and alert. Able to communicate. LABORATORY EXAMINATION: WBC 6.7, hemoglobin 11.7, hematocrit 36.4, and platelets of 83. Chemistry: Sodium 134, potassium 4.5, chloride 105, CO2 of 21, BUN 29, creatinine 1.8. Blood sugar of 104. AST 107. Fluid contained rbc's of 21,000; polymorphonuclear cells 7.2; and mononuclear cells 92.8%. ASSESSMENT: 1. 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 2. Ascites. 3. Vancomycin-resistant enterococcal urinary tract infection. 4. Blood cultures are negative. , no growth. 5. Active alcohol abuse. PLAN: Currently, the patient is on spironolactone. He is on Augmentin for his port wounds and empirically for SBP. Follow up culture. Discharge plan in a.. Shantell Christine MD
--- NOTE | 2018-12-30 07:49 | CP.PCM.PN ---
<Constantin Carter - Last Filed: 12/30/18 15:20> Subjective - Date & Time of Evaluation Date of Evaluation: 12/30/18 Time of Evaluation: 10:05 - Subjective Subjective: Infectious dx progress note: Pt seen and examined at bedside. No acute events overnight. States abd pain has improved. No other complaints at this time. No fevers 12 Point ROS performed and neg other than stated above Objective - Vital Signs/Intake and Output Vital Signs (last 24 hours): Temp Pulse Resp BP Pulse Ox 98.7 F 71 20 108/64 96 12/29/18 17:23 12/29/18 17:30 12/29/18 17:23 12/29/18 17:30 12/29/18 17:23 Intake and Output: 12/30/18 12/30/18 06:59 18:59 Intake Total 120 Balance 120 - Medications Medications: Current Medications Amoxicillin/Clavulanate Potassium (Augmentin 875 Mg-125 Mg Tab) 1 tab PO Q12 [facility]; Protocol Last Admin: 12/29/18 21:08 Dose: 1 tab Chlordiazepoxide (Librium) 25 mg PO Q8 PRN; Protocol PRN Reason: Agitation Folic Acid (Folic Acid) 1 mg PO DAILY [facility] Last Admin: 12/29/18 09:25 Dose: 1 mg Furosemide (Lasix) 20 mg PO DAILY [facility] Last Admin: 12/29/18 09:25 Dose: 20 mg Magnesium Oxide (Mag-Ox) 400 mg PO DAILY [facility] Last Admin: 12/29/18 09:25 Dose: 400 mg Propranolol HCl (Inderal) 10 mg PO BID [facility] Last Admin: 12/29/18 17:30 Dose: 10 mg Spironolactone (Aldactone) 50 mg PO DAILY [facility] Last Admin: 12/29/18 09:25 Dose: 50 mg Thiamine HCl (Vitamin B1 Tab) 100 mg PO DAILY [facility] Last Admin: 12/29/18 09:24 Dose: 100 mg - Labs Labs: 12/29/18 08:20 12/29/18 08:20 - Constitutional Appears: No Acute Distress - Head Exam Head Exam: ATRAUMATIC, NORMOCEPHALIC - Eye Exam Eye Exam: EOMI - Respiratory Exam Respiratory Exam: Clear to Ausculation Bilateral. absent: Rales, Wheezes - Cardiovascular Exam Cardiovascular Exam: REGULAR RHYTHM, +S1, +S2 - GI/Abdominal Exam GI & Abdominal Exam: Soft. absent: Tenderness - Extremities Exam Extremities Exam: absent: Calf Tenderness - Neurological Exam Neurological Exam: Alert, Awake - Skin Skin Exam: Dry, Warm Assessment and Plan - Assessment and Plan (Free Text) Assessment: Abdominal pain rule out SBP s/p paracenthesis neg for SBP Asymptomatic bacteriurea Acute on chronic kidney dx Alcoholic liver cirrhosis Hypertension History of pancreatitis Upon d/c can go with Augmentin 875mg PO today day 2 to complete 5 days of therapy. Linezolid x 1 we will d/c Asymptomatic bacteriurea Ascitic fluid cx - neg D/c Cefepime and Flagyl completed 3 days Follow-up septic work-up, blood cx neg Continue to monitor for any changes. Case and plan to be reviewed and discussed with Dr. Lamb <Moshe Lamb - Last Filed: 12/30/18 21:31> Objective - Vital Signs/Intake and Output Vital Signs (last 24 hours): Temp Pulse Resp BP Pulse Ox 99.2 F 66 20 107/67 96 12/30/18 08:02 12/30/18 11:11 12/30/18 08:02 12/30/18 11:12 12/30/18 08:02 - Labs Labs: 12/29/18 08:20 12/29/18 08:20 Attending/Attestation - Attestation I have personally seen and examined this patient.: Yes I have fully participated in the care of the patient.: Yes I have reviewed all pertinent clinical information, including history, physical exam and plan: Yes
[2018-12-30 08:03] VITALS: BP 107/67; PULSE 66; TEMP 99.2
[2018-12-30] MEDS: Amoxicillin-Clav 875-125 mg Tab PO SCH (11:09)
[2018-12-30] MEDS: Magnesium Oxide 400 mg Tab UD PO SCH (11:10)
--- NOTE | 2018-12-31 01:08 | DS ---
HISTORY OF PRESENT ILLNESS: The patient is 68 years old, who came in with abdominal discomfort. He was also found to have VRE in urine. He had cirrhotic ascites that was tapped. Although it did not grow anything, he was empirically started on Rocephin and Flagyl and did very well, responded to antibiotics and pain improved. Eating and tolerating. PHYSICAL EXAMINATION: GENERAL: Today, he is awake and alert, able to communicate. VITAL SIGNS: Afebrile, pulse 66, respirations 20, blood pressure 107/67. LUNGS: Bilateral fair airflow. No rhonchi or crackle. HEART: S1 and S2 audible. ABDOMEN: Soft, nontender. No rebound and no guarding. NEUROLOGIC: The patient is awake and alert, communicates. ASSESSMENT AND PLAN: 1. History of alcohol abuse. 2. Cirrhosis of liver. 3. Cirrhotic ascites. 4. Vancomycin-resistant enterococcal urinary tract infection. 5. Recent injury to the foot. PLAN: The patient is clinically stable, is being discharged home. He will resume his medication including thiamin, spironolactone, propranolol, magnesium, Lasix, folic acid. He is given prescription of Augmentin 500 mg 3 times a day for a week and for 3 days and he will follow with his PMD. Shantell Christine MD
== END 2018-12-30 14:38 | disposition home or self-care (01) | DRG 433 ==
LOC: ED 01:59 → ERH 04:02 → 3RNO 05:29
PROVIDERS: ADMIT Internal Medicine; ATTEND Internal Medicine
PROC: 0W9G3ZX Drainage of Peritoneal Cavity, Percutaneous Approach, Diagnostic (ICD-10-PCS; principal; 2018-12-28 16:00)
DX: K70.31 Alcoholic cirrhosis of liver with ascites (principal); N39.0 Urinary tract infection, site not specified; N17.9 Acute kidney failure, unspecified; K70.11 Alcoholic hepatitis with ascites; I12.9 Hypertensive chronic kidney disease with stage 1 through stage 4 chronic kidney disease, or unspecified chronic kidney disease; N18.9 Chronic kidney disease, unspecified; B95.2 Enterococcus as the cause of diseases classified elsewhere; Z16.21 Resistance to vancomycin; F10.10 Alcohol abuse, uncomplicated; E78.5 Hyperlipidemia, unspecified; Z87.11 Personal history of peptic ulcer disease; Z87.891 Personal history of nicotine dependence

== ENCOUNTER 2018-12-31 21:56 | Emergency (ER) | payer MEDICARE ==
[2018-12-31 22:03] VITALS: BMI 18.7
[2018-12-31 22:20] VITALS: TEMP 97.9; O2SAT 100
--- NOTE | 2018-12-31 23:03 | ED PDOC ---
Arrival/HPI - General Chief Complaint: Alcohol Ingestion Time Seen by Provider: 12/31/18 21:58 Historian: Patient EM Caveat: Intoxicated - History of Present Illness Narrative History of Present Illness (Text): 12/31/18 23:00 68 year old male, whose past medical history includes alcoholic liver cirrhosis, HTN, and pancreatitis, presents to the emergency department for public intoxication tonight. Patient admits to drinking alcohol tonight. HPI and ROS limited due to patient's state of intoxication. Past Medical History - Provider Review Nursing Documentation Reviewed: Yes - Infectious Disease Hx of Infectious Diseases: None - Tetanus Immunization Tetanus Immunization: Up to Date (per patient) - Cardiac Hx Hypertension: Yes - Pulmonary Hx Asthma: Yes - Neurological Hx Neurological Disorder: No - HEENT Hx HEENT Disorder: No - Renal Hx Renal Disorder: No - Endocrine/Metabolic Hx Endocrine Disorders: No - Hematological/Oncological Hx Blood Disorders: Yes Hx Cirrhosis: Yes - Integumentary Hx Dermatological Disorder: No - Musculoskeletal/Rheumatological Hx Falls: Yes - Gastrointestinal Hx Pancreatitis: Yes (alcoholic) - Genitourinary/Gynecological Hx Genitourinary Disorders: No - Psychiatric Hx Psychophysiologic Disorder: Yes Hx Depression: Yes Hx Substance Use: No - Surgical History Other/Comment: liver bx - Anesthesia Hx Anesthesia: No Family/Social History - Physician Review Nursing Documentation Reviewed: Yes Family/Social History: No Known Family HX Smoking Status: Former Smoker Hx Alcohol Use: Yes (2 high ball shots daily) Hx Substance Use: No Substance used: Marijuana (last used yesterday) Allergies/Home Meds Allergies/Adverse Reactions: Allergies pollen extracts Allergy (Verified 12/27/18 02:02) ITCHING Review of Systems - Physician Review All systems were reviewed & negative as marked: Yes - Review of Systems Systems not reviewed;Unavailable: Intoxicated Physical Exam Vital Signs Reviewed: Yes Vital Signs Temp Pulse Resp BP Pulse Ox 12/31/18 22:19 97.9 F 77 21 113/68 100 Temperature: Afebrile Blood Pressure: Normal Pulse: Regular Respiratory Rate: Normal Appearance: Positive for: Well-Appearing, Non-Toxic, Comfortable Pain Distress: None Mental Status: Positive for: other (alert and intoxicated ) Finger Stick Blood Glucose: 183 - Systems Exam Head: Present: Atraumatic, Normocephalic Pupils: Present: PERRL Extroacular Muscles: Present: EOMI Conjunctiva: Present: Normal Mouth: Present: Moist Mucous Membranes, Other (alcohol on breath) Neck: Present: Normal Range of Motion Respiratory/Chest: Present: Clear to Auscultation, Good Air Exchange. No: Respiratory Distress, Accessory Muscle Use Cardiovascular: Present: Regular Rate and Rhythm, Normal S1, S2. No: Murmurs Abdomen: No: Tenderness, Distention, Peritoneal Signs Back: Present: Normal Inspection Upper Extremity: Present: Normal Inspection. No: Cyanosis, Edema Lower Extremity: Present: Normal Inspection. No: Edema Skin: Present: Warm, Dry, Normal Color. No: Rashes Psychiatric: Present: Alert, Intoxicated Medical Decision Making ED Course and Treatment: 12/31/18 23:01 Impression: 68 year old male presents for public intoxication tonight. Plan: -- Glucose -- Sobriety -- Reassess and disposition Prior Visits: Notes and results from previous visits were reviewed. Progress Notes: 01/01/19 06:16 Patient awake alert sober. - Scribe Statement The provider has reviewed the documentation as recorded by the Jose Tidwell Provider Scribe Attestation: All medical record entries made by the Scribe were at my direction and personally dictated by me. I have reviewed the chart and agree that the record accurately reflects my personal performance of the history, physical exam, medical decision making, and the department course for this patient. I have also personally directed, reviewed, and agree with the discharge instructions and disposition. Disposition/Present on Arrival - Present on Arrival Any Indicators Present on Arrival: No History of DVT/PE: No History of Uncontrolled Diabetes: No Urinary Catheter: No History of Decub. Ulcer: No History Surgical Site Infection Following: None - Disposition Have Diagnosis and Disposition been Completed?: Yes Diagnosis: Alcohol intoxication Disposition: HOME/ ROUTINE Disposition Time: 06:16 Condition: STABLE Referrals: Alcoholics Anonymous [Outside] - Follow up with primary Forms: HelloFax (Bulgarian)
[2019-01-01 04:24] VITALS: RESP 18
[2019-01-01 06:26] VITALS: BP 112/60; PULSE 67
== END 2019-01-01 06:25 | disposition home or self-care (01) ==
LOC: ED 21:56
DX: F10.129 Alcohol abuse with intoxication, unspecified (principal)

== ENCOUNTER 2019-01-03 22:03 | Emergency (ER) | payer MEDICARE, OTHER ==
[2019-01-03 22:04] VITALS: BMI 18.7
--- NOTE | 2019-01-04 02:15 | ED PDOC ---
Arrival/HPI - General Chief Complaint: Abdominal Pain Time Seen by Provider: 01/03/19 22:49 Historian: Patient - History of Present Illness Narrative History of Present Illness (Text): 01/04/19 02:28 68 year old male, whose past medical history includes alcoholic liver cirrhosis, hypertension, and pancreatitis, presents to the emergency department complaining of abdominal and groin discomfort. Patient informs he was pulling a heavy box, and believes it may have triggered his pain. Patient denies any denies fevers, chills, headache, dizziness, chest pain, shortness of breath, dyspnea on exertion, cough, nausea, vomiting, diarrhea, back pain, neck pain, or any other complaint. Time/Duration: Prior to Arrival Symptom Onset: Gradual Symptom Course: Unchanged Activities at Onset: Significant Context: Exertion Past Medical History - Provider Review Nursing Documentation Reviewed: Yes - Infectious Disease Hx of Infectious Diseases: None - Tetanus Immunization Tetanus Immunization: Up to Date (per patient) - Cardiac Hx Hypertension: Yes - Pulmonary Hx Asthma: Yes - Neurological Hx Neurological Disorder: No - HEENT Hx HEENT Disorder: No - Renal Hx Renal Disorder: No - Endocrine/Metabolic Hx Endocrine Disorders: No - Hematological/Oncological Hx Blood Disorders: Yes Hx Cirrhosis: Yes - Integumentary Hx Dermatological Disorder: No - Musculoskeletal/Rheumatological Hx Falls: Yes - Gastrointestinal Hx Pancreatitis: Yes (alcoholic) - Genitourinary/Gynecological Hx Genitourinary Disorders: No - Psychiatric Hx Psychophysiologic Disorder: Yes Hx Depression: Yes Hx Substance Use: No - Surgical History Other/Comment: liver bx - Anesthesia Hx Anesthesia: No Family/Social History - Physician Review Nursing Documentation Reviewed: Yes Family/Social History: No Known Family HX Smoking Status: Former Smoker Hx Alcohol Use: Yes (2 high ball shots daily) Hx Substance Use: No Substance used: Marijuana (last used yesterday) Allergies/Home Meds Allergies/Adverse Reactions: Allergies pollen extracts Allergy (Verified 12/27/18 02:02) ITCHING Review of Systems - Physician Review All systems were reviewed & negative as marked: Yes - Review of Systems Constitutional: absent: Fevers, Night Sweats Respiratory: absent: SOB, Cough Cardiovascular: absent: Chest Pain, [place] Gastrointestinal: Abdominal Pain. absent: Diarrhea, Nausea, Vomiting Musculoskeletal: absent: Back Pain, Neck Pain Neurological: absent: Headache, Dizziness Physical Exam Vital Signs Reviewed: Yes Vital Signs Pulse Resp BP Pulse Ox 01/04/19 01:48 87 15 123/69 97 01/03/19 23:14 78 14 132/73 98 01/03/19 22:26 79 15 125/77 95 Blood Pressure: Normal Pulse: Regular Respiratory Rate: Normal Appearance: Positive for: Well-Appearing, Non-Toxic, Comfortable Pain Distress: None Mental Status: Positive for: Alert and Oriented X 3 - Systems Exam Head: Present: Atraumatic, Normocephalic Pupils: Present: PERRL Extroacular Muscles: Present: EOMI Conjunctiva: Present: Normal Mouth: Present: Moist Mucous Membranes Neck: Present: Normal Range of Motion Respiratory/Chest: Present: Clear to Auscultation, Good Air Exchange. No: Respiratory Distress, Accessory Muscle Use Cardiovascular: Present: Regular Rate and Rhythm, Normal S1, S2. No: Murmurs Abdomen: Present: Normal Bowel Sounds. No: Tenderness, Distention, Peritoneal Signs, Hernias Genitourinary Male: Present: Other (Testes descended bilaterally). No: Hernias Back: Present: Normal Inspection Upper Extremity: Present: Normal Inspection. No: Cyanosis, Edema Lower Extremity: Present: Normal Inspection. No: Edema Neurological: Present: GCS=15, CN II-XII Intact, Speech Normal Skin: Present: Warm, Dry, Normal Color. No: Rashes Psychiatric: Present: Alert, Oriented x 3, Normal Insight, Normal Concentration Medical Decision Making ED Course and Treatment: 01/04/19 02:30 Impression: 68 year old male presents with abdominal and groin pain. Plan: -- Motrin -- Reassess and disposition Prior Visits: Notes and results from previous visits were reviewed. Progress Notes: - Medication Orders Current Medication Orders: Ibuprofen (Motrin Tab) 600 mg PO STAT STA Stop: 01/04/19 02:10 - Scribe Statement The provider has reviewed the documentation as recorded by the Jose Krishnan Provider Scribe Attestation: All medical record entries made by the Scribe were at my direction and personally dictated by me. I have reviewed the chart and agree that the record accurately reflects my personal performance of the history, physical exam, medical decision making, and the department course for this patient. I have also personally directed, reviewed, and agree with the discharge instructions and disposition. Disposition/Present on Arrival - Present on Arrival Any Indicators Present on Arrival: No History of DVT/PE: No History of Uncontrolled Diabetes: No Urinary Catheter: No History of Decub. Ulcer: No History Surgical Site Infection Following: None - Disposition Have Diagnosis and Disposition been Completed?: Yes Diagnosis: Abdominal muscle strain Disposition: HOME/ ROUTINE Disposition Time: 02:15 Patient Plan: Discharge Patient Problems: Current Active Problems Problem Status Onset Abdominal muscle strain Acute Condition: STABLE Discharge Instructions (ExitCare): Abdominal Muscle Strain (DC) Additional Instructions: Rest/no strenuous physical activity/take meds as prescribed/follow up with your doctor this week Prescriptions: Naproxen [Naprosyn Tab] 375 mg PO BID PRN #12 tab PRN Reason: Pain, Moderate (4-7) Forms: [facility] ([place]ian)
[2019-01-04 02:22] VITALS: BP 101/57; PULSE 83; RESP 16; O2SAT 96
== END 2019-01-04 03:20 | disposition home or self-care (01) ==
LOC: ED 22:03
DX: S39.011A Strain of muscle, fascia and tendon of abdomen, initial encounter (principal); X50.0XXA Overexertion from strenuous movement or load, initial encounter